=== PATIENT | male | born 1965 | race Caucasian/White ===

== ENCOUNTER 2019-07-30 05:43 | Day surgery (SDC) | payer OTHER, SELFPAY ==
[2019-07-29 07:51] VITALS: BMI 37.4
[2019-07-30 06:00] VITALS: BP 122/68; PULSE 82; RESP 16; TEMP 36.2; O2SAT 97
[2019-07-30] MEDS: sodium chloride 0.9% 1,000 ML 30 ML (06:13)
--- NOTE | 2019-07-30 06:23 | W.PM.OPSUD ---
Surgery/Procedure H&P Update DATE OF PROCEDURE: July 30, 2019 DATE H&P PERFORMED: 07/07/19 H&P UPDATE INFORMATION: I have reviewed H&P completed within last 30 days, I have examined patient prior to procedure and No changes to prior documentation PREOP DIAGNOSIS: History of colon polyps requiring surveillance colonoscopy PRIMARY INDICATION FOR PROCEDURE: The same PLANNED PROCEDURE: Operation Date: 07/30/19 07:15 Proposed Procedures p Colonoscopy(Not Applicable) - Issac Cruz MD
--- NOTE | 2019-07-30 06:51 | ANES.PREANE2 ---
Pre-Anesthetic Assessment Pre-Anesthetic Assessment: Height/Weight: Height 1.65 m Weight 102.058 kg Temp Pulse Resp BP Pulse Ox 97.1 F L 82 16 122/68 97 07/30/19 06:00 07/30/19 06:00 07/30/19 06:00 07/30/19 06:00 07/30/19 06:00 Preop Diagnosis: History of colon polyps requiring surveillance colonoscopy Proposed Procedure: Operation Date: 07/30/19 07:00 Proposed Procedures p Colonoscopy(Not Applicable) - Issac Cruz MD Familial anesthetic complications: denies Was Beta [place] taken within 24 hours: N/A Last intake: Intake Last Liquid Date 07/29/19 Last Liquid Time 19:00 Last Solid Date 07/28/19 Last Solid Time 19:00 Social: Social History: No alcohol and No tobacco Exam: Pre-Anes Outpt Exam: alert, oriented x 3 and clear to auscultation bilaterally Airway: Submandibular: WNL Cervical ROM: WNL MP: 2 History/ROS: No significant history except as noted Pulmonary: Pulmonary: None reported CV/HEM: CV/HEM: HTN : : None reported Hepatic: Hepatic: None reported GI: GI: GERD Metabolic: Metabolic: DM and Morbid obesity Musc/skel: Musc/skel: None reported Neuropsych: Neuropsych: None reported Anesthetic Plan: ASA status: 3 Anesthesia: Anesthesia Evaluation and MAC PFSH Anesthesia PFSH: Social History Smoking and tobacco status: never smoked Alcohol intake: never Lives independently: Yes Household members: spouse Current occupational status: employed History of recent travel: No Data Anesthesia Cardiac Studies: No Data to Display
[2019-07-30 07:42] VITALS: BP 112/74; PULSE 83; RESP 16; TEMP 36.4; O2SAT 97
[2019-07-30 07:47] VITALS: BP 121/74; PULSE 76; RESP 18; O2SAT 96
--- NOTE | 2019-07-30 08:15 | ANE.PACU2 ---
 Inpatient post-anesthesia follow up: Airway intact: Yes Vital signs: Temperature 97.5 F Pulse Rate 76 Respiratory Rate 18 Blood Pressure 121/74 Pulse Oximetry 96 Oxygen Delivery Me thod Room Air Oxygen Flow Rate Fraction of Inspir ed Oxygen Hydration adequate: Yes Nausea and vomiting: No Pain level: 2 Mental status: Baseline
== END 2019-07-30 08:09 | disposition home or self-care (01) ==
PROVIDERS: PCP Family Medicine; Visit Provider Surgery
PROC: 0DJD8ZZ Inspection of Lower Intestinal Tract, Via Natural or Artificial Opening Endoscopic (ICD-10-PCS; CPT 45378; principal; 2019-07-30 07:00)
DX: Z12.11 Encounter for screening for malignant neoplasm of colon (principal); Z86.010 Personal history of colon polyps; Z79.82 Long term (current) use of aspirin; Z79.84 Long term (current) use of oral hypoglycemic drugs; E11.9 Type 2 diabetes mellitus without complications; E78.5 Hyperlipidemia, unspecified; I10 Essential (primary) hypertension; E66.01 Morbid (severe) obesity due to excess calories; Z68.37 Body mass index [BMI] 37.0-37.9, adult
CPT/HCPCS: 12345; 45378; J2001; J2704; J7030

== ENCOUNTER → 2020-02-10 14:48 | Outpatient (BNVA) | payer OTHER, SELFPAY | PROVIDERS: PCP Family Medicine; Visit Provider Nurse Practitioner Family | DX: Z11.59 Encounter for screening for other viral diseases (principal) | CPT/HCPCS: 87635 ==

== ENCOUNTER → 2020-02-22 16:21 | Outpatient (BNVA) | payer OTHER, SELFPAY | PROVIDERS: PCP Family Medicine; Visit Provider Family Medicine | DX: Z11.59 Encounter for screening for other viral diseases (principal) | CPT/HCPCS: 87635 ==

== ENCOUNTER 2020-06-28 20:00 | Outpatient (CLI) | payer OTHER, SELFPAY | END 2020-06-28 20:01 | disposition home or self-care (01) | LOC: SLEEP 06-29 08:36 | PROVIDERS: PCP Family Medicine; Visit Provider Family Medicine | DX: G47.33 Obstructive sleep apnea (adult) (pediatric) (principal) | CPT/HCPCS: 95810 ==

== ENCOUNTER 2021-06-30 20:00 | Outpatient (CLI) | payer OTHER, SELFPAY | END 2021-06-30 20:01 | disposition home or self-care (01) | LOC: SLEEP 07-01 08:55 | PROVIDERS: Visit Provider Family Medicine | DX: G47.33 Obstructive sleep apnea (adult) (pediatric) (principal) | CPT/HCPCS: 95811 ==

== ENCOUNTER 2021-09-06 06:20 | Outpatient (CLI) | payer OTHER, SELFPAY ==
--- NOTE | 2021-09-06 06:37 | US_ITS ---
WS: [id number] RIGHT UPPER QUADRANT ULTRASOUND HISTORY: ELEVATED LIVER ENZYMES COMPARISON: None available. Liver: 18.4 cm in length. Liver is mildly enlarged. Coarse echotexture throughout. There is mild nodu larity along the surface of the LEFT lobe of the liver which may represent early cirrhosis. Variable echogenicity due to combination of hepatic steatosis with areas of sparing. No mass identified. Portal Vein: Normal hepatopetal flow with monophasic waveform. Gallbladder: Normally distended gallbladder with no stones or wall thickening. CBD: 0.4 cm Pancreas: Poorly visualized. Completely obscured by shadowing due to bowel gas. Right kidney: 11.7 cm in length. Normal size kidney. There is a cystic structure in the renal pelvis which is probably a parapelvic or extrarenal pelvis. There is no dilatation of the calyces. Aorta and IVC: Mild atherosclerosis. No aneurysm. No ascites. US/US abdomen limited [id number] IMPRESSION: 1. Normal gallbladder. 2. Mildly enlarged liver with areas of hepatic steatosis and fatty sparing. No mass identified. 3. Early changes of cirrhosis are likely. 4. Fluid collection the central RIGHT renal pelvis. Without calyceal dilatatio n and suspect this is probably a parapelvic cyst or extrarenal pelvis. Less lik merrick hydronephrosis. If there is any possibility of hydronephrosis secondary to ureteral stone consider noncontrast CT evaluation of the abdomen and pelvis.
== END 2021-09-06 06:21 | disposition home or self-care (01) ==
LOC: RAD 06:21
PROVIDERS: Visit Provider Family Medicine
DX: R74.8 Abnormal levels of other serum enzymes (principal); R16.0 Hepatomegaly, not elsewhere classified
CPT/HCPCS: 76705

== ENCOUNTER 2022-01-05 08:25 | Outpatient (CLI) | payer OTHER, SELFPAY ==
--- NOTE | 2022-01-05 08:38 | CT_ITS ---
WS: [id number] CT ABDOMEN PELVIS TECHNIQUE: Contrast-enhanced CT of the abdomen and pelvis with coronal and sagittal reformatted image s. CLINICAL INFORMATION: FLUID COLLECTION IN THE R RENAL PELVIS COMPARISON: Ultrasound September 06, 2021 DLP: 1269.[address] scans at [facility] use at least one of these dose optimization techniques: automated e xposure control; mA and/or kV adjustment per patient size (includes targeted exams where dose is matc hed to clinical indication); or iterative reconstruction. FINDINGS: Diffuse fatty infiltration of the liver. Normal portal vein and splenic vein. Normal gallbladder. Sma ll hepatic cyst RIGHT hepatic lobe measuring 8 mm. Normal spleen. Normal GE junction. Lung bases are well aerated. Normal caliber abdominal aorta. No periaortic lymphadenopathy. Heterogeneous enhancing nodular prostate measuring 5.3 x 6.0 cm. Mild diffuse bladder wall thickening. Fat-containing inguina l hernias. Normal pancreatic parenchymal enhancement. Adrenal glands are normal. Normal renal parenchymal enhanc ement. Moderate RIGHT renal hydronephrosis. Moderate dilatation of the RIGHT ureter extending into th e pelvis to the UVJ. Enlarged nodular prostate appears to be partially obstructing the UVJ. No hydron ephrosis in the LEFT kidney. Numerous RIGHT calyceal tip calculi. Thickening of the seminal vesicles bilaterally. Normal sigmoid colon. Normal appendix in the RIGHT lo wer quadrant. Fat-containing umbilical hernia. CT/CT abdomen pelvis w con* [id number] IMPRESSION: 1. Moderate RIGHT renal hydronephrosis with ureterectasis extending to the RIG HT UVJ. UVJ appears to be obstructed by the nodular enlarged prostate. 2. Enlarged nodular heterogeneous enhancing prostate with indentation on the b ladder and mild bladder outlet obstruction. Diffuse thickening of the seminal v esicles bilaterally. Findings suspicious for neoplasia. Recommend correlation P SA. 3. No hydronephrosis in the LEFT kidney. 4. Nonobstructing RIGHT renal calyceal calculi. 5. Diffuse fatty infiltration liver. 6. Hepatic and renal cysts. 7. Fat-containing umbilical hernia. 8. Bilateral fat-containing inguinal hernias. 9. No other suspicious findings.
[2022-01-05] MEDS: iohexol 350 mg/mL 100 mL Btl IV (09:31)
== END 2022-01-05 08:26 | disposition home or self-care (01) ==
PROVIDERS: Visit Provider Family Medicine
DX: Z01.89 Encounter for other specified special examinations (principal); K40.20 Bilateral inguinal hernia, without obstruction or gangrene, not specified as recurrent; K76.89 Other specified diseases of liver; N28.1 Cyst of kidney, acquired; K76.0 Fatty (change of) liver, not elsewhere classified; N20.0 Calculus of kidney; N40.0 Benign prostatic hyperplasia without lower urinary tract symptoms; N13.30 Unspecified hydronephrosis
CPT/HCPCS: 74177